=== PATIENT | male | born 1990 | race Caucasian/White ===

== ENCOUNTER 2021-12-27 22:15 | Emergency (ER) | payer OTHER ==
[~2021-12-27] VITALS: Ht 182.9 cm; Wt 93.0 kg
== END 2021-12-28 00:32 | disposition home or self-care (01) ==
LOC: ER 22:15
DX: S01.80XA Unspecified open wound of other part of head, initial encounter (principal); X58.XXXA Exposure to other specified factors, initial encounter; Y93.19 Activity, other involving water and watercraft; Y92.89 Other specified places as the place of occurrence of the external cause

== ENCOUNTER 2022-04-22 07:21 | Outpatient (CLI) | payer OTHER | END 2022-04-22 07:33 | disposition home or self-care (01) | LOC: TOM 07:21 | PROVIDERS: ATTEND Physical Medicine & Rehabilitation | DX: R10.31 Right lower quadrant pain (principal) ==

== ENCOUNTER 2022-07-28 07:38 | Outpatient (CLI) | payer OTHER | END 2022-07-28 07:48 | disposition home or self-care (01) | LOC: LAB 07:38 | PROVIDERS: ATTEND Physical Medicine & Rehabilitation | DX: E03.9 Hypothyroidism, unspecified (principal); E78.5 Hyperlipidemia, unspecified; D64.9 Anemia, unspecified ==

== ENCOUNTER 2022-10-14 06:43 | Outpatient (CLI) | payer OTHER | END 2022-10-14 06:44 | disposition home or self-care (01) | LOC: LAB 06:43 | PROVIDERS: ATTEND General Practice | DX: I11.9 Hypertensive heart disease without heart failure (principal); E78.00 Pure hypercholesterolemia, unspecified; E03.8 Other specified hypothyroidism; E55.9 Vitamin D deficiency, unspecified; D64.9 Anemia, unspecified; R73.09 Other abnormal glucose; Z12.11 Encounter for screening for malignant neoplasm of colon; N40.0 Benign prostatic hyperplasia without lower urinary tract symptoms ==

== ENCOUNTER 2022-10-14 07:21 | Outpatient (CLI) | payer OTHER | END 2022-10-14 07:32 | disposition home or self-care (01) | LOC: RAD 07:21 | PROVIDERS: ATTEND General Practice | DX: M25.521 Pain in right elbow (principal); M25.561 Pain in right knee ==

== ENCOUNTER 2022-12-17 08:16 | Outpatient (CLI) | payer OTHER ==
[~2022-12-17 08:16] MED LIST: DICLOFENAC POTA50 MG PO; VOLTAREN ARTHRI20 GM TOP
== END 2022-12-17 09:06 | disposition home or self-care (01) ==
LOC: MRI 08:16
PROVIDERS: ATTEND Physical Medicine & Rehabilitation
DX: M25.561 Pain in right knee (principal); M25.521 Pain in right elbow
CPT/HCPCS: 73721

== ENCOUNTER 2024-05-29 10:26 | Outpatient (CLI) | payer OTHER | END 2024-05-29 10:38 | disposition home or self-care (01) | LOC: SONOGRAMA 10:26 | DX: M25.572 Pain in left ankle and joints of left foot (principal) ==

== ENCOUNTER 2024-08-22 07:22 | Outpatient (CLI) | payer OTHER ==
[2024-08-22 08:16] LABS: URINE APPEARANCE Clear; URINE BILIRRUBIN Negative (NEGATIVE); URINE BLOOD Negative; URINE COLOR Yellow; URINE GLUCOSE Negative (NEGATIVE); URINE KETONE Trace (NEGATIVE); URINE LEUKOCYTE Small; URINE NITRATE Negative; URINE PROTEIN Negative (NEGATIVE); URINE UROBILINOGEN 0.2 E.U./dl
[2024-08-22 08:20] LABS: HEMOGLOBIN 13.3 g/dL (13-16.00); MEAN CELL VOLUME 93.2 fL (80.0-100.00); MEAN CORPUSCULAR HEMOGLOBIN 31.1 pg (27.00-32.0); MEAN CORPUSCULAR HGB CONC 33.4 g/dl (32.0-36.0); PLATELET COUNT 234 K/uL (150-450); RED BLOOD COUNT 4.29 M/uL (4.00-6.00); RED CELL DISTRIBUTION WIDTH 13.6 % (11.5-14.5)
[2024-08-22 08:21] LABS: URINE BACTERIA 4.8 uL (0.0-1933); URINE WBC 98.7 uL (0.0-23.2)
[2024-08-22 08:26] LABS: URINE EPITHELIAL CELLS 1.2 uL (0.0-38.8); URINE RBC 0.7 uL (0.0-20.8)
[2024-08-22 09:34] LABS: ALBUMIN 3.9 gm/dL (3.4-5.0); ALKALINE PHOSPHATASE 59 U/L (50-136); ALT/SGPT 40 U/L (12-78); ANION GAP 6 (10.0-20.0); AST/SGOT 28 U/L (15-37); BILIRUBIN TOTAL 0.64 mg/dL (0.3-1.2); BLOOD UREA NITROGEN 19 mg/dL (7-18); BUN CREA RATIO 18 (7.0-25.0); C-REACTIVE PROTEIN < 0.29 MG/DL (0.00-0.29); CALCIUM 9.3 mg/dL (8.5-10.1); CARBON DIOXIDE 31 mEq/L (21-32); CHLORIDE 108 mmol/L (98-107); CHOL HDL RATIO 2.9 (0-5.0); CHOLESTEROL 180 mg/dL (0-200); CREATININE SERUM 1.05 mg/dL (0.70-1.30); GFR 77.09; GLUCOSE FASTING 81 mg/dL (65-100); HDL 62 mg/dl (40-60); LDL 107 mg/dl (0-130); OSMOLALITY SERUM 283 MOSM/KG (275-295); POTASSIUM 4.21 mEq/L (3.5-5.1); SODIUM 141 mmol/L (136-145); TOTAL PROTEIN 6.9 gm/dL (6.4-8.2); TRIGLYCERIDES 55 mg/dL (0-150); TSH 0.768 uIU/mL (0.358-3.74); VLDL 11 (0-39)
[2024-08-22 10:04] LABS: CORTISOL 15.55 ug/dl; VITAMIN D3 25 HYDROXY 70.54 ng/ml (30-120)
[2024-08-23 10:08] LABS: ESTRADIOL SERUM 16.7 pg/mL (7.6-42.6)
== END 2024-08-22 07:28 | disposition home or self-care (01) ==
LOC: LAB 07:22
PROVIDERS: ATTEND General Practice
DX: D64.9 Anemia, unspecified (principal); E86.0 Dehydration; E03.8 Other specified hypothyroidism; E55.9 Vitamin D deficiency, unspecified; E53.8 Deficiency of other specified B group vitamins; Z12.11 Encounter for screening for malignant neoplasm of colon; I11.9 Hypertensive heart disease without heart failure; E78.2 Mixed hyperlipidemia; N39.0 Urinary tract infection, site not specified; N40.0 Benign prostatic hyperplasia without lower urinary tract symptoms

== ENCOUNTER 2024-08-22 08:10 | Outpatient (CLI) | payer OTHER | END 2024-08-22 08:23 | disposition home or self-care (01) | LOC: SONOGRAMA 08:10 | PROVIDERS: ATTEND General Practice | DX: S99.922A Unspecified injury of left foot, initial encounter (principal); M79.672 Pain in left foot ==

== ENCOUNTER → 2024-08-24 13:14 | Outpatient (CLI) | payer OTHER ==
[2024-08-24 13:40] LABS: ob NEGATIVE (NEGATIVE)
== END | disposition home or self-care (01) ==
LOC: LAB 13:14
PROVIDERS: ATTEND General Practice
DX: D64.9 Anemia, unspecified (principal); E86.0 Dehydration; E03.8 Other specified hypothyroidism; E55.9 Vitamin D deficiency, unspecified; E53.8 Deficiency of other specified B group vitamins; E11.65 Type 2 diabetes mellitus with hyperglycemia; Z12.11 Encounter for screening for malignant neoplasm of colon; I11.9 Hypertensive heart disease without heart failure; E78.2 Mixed hyperlipidemia; N39.0 Urinary tract infection, site not specified; N40.0 Benign prostatic hyperplasia without lower urinary tract symptoms